=== PATIENT | male | born 1960 | race Caucasian/White ===

== ENCOUNTER 2017-01-25 09:57 | Emergency (ER) | payer OTHER ==
[~2017-01-25] VITALS: Ht 172.7 cm; Wt 96.3 kg
--- NOTE | 2017-01-25 10:07 | NUR ---
PT AMBULATED TO BED 6.
[2017-01-25 10:09] VITALS: BP 133/73
--- NOTE | 2017-01-25 10:12 | NUR ---
56M BIB FAMILY C/O RIGHT TESTICULAR PAIN/SWELLING X 3 DAYS; PT STATES NO TRAUMA OR INJURY TO SITE AT THIS TIME. HX: HTN, TUMOR IN HEAD, DENIES N/V/D; SKIN IS PINK/WARM/DRY; AAOX4 WITH EVEN AND STEADY GAIT; LUNGS CLEAR BL; HR EVEN AND REGULAR; PT DENIES ANY FEVER, CP, SOB, OR COUGH AT THIS TIME; PATIENT STATES PAIN OF 10/10 AT THIS TIME; VSS; PATIENT POSITIONED FOR COMFORT; HOB ELEVATED; BEDRAILS UP X2; BED DOWN. ER MD MADE AWARE OF PT STATUS.
[2017-01-25] MEDS ORDERED: KETOROLAC 60 MG/2 ML VIAL IM ONE (10:25)
--- NOTE | 2017-01-25 10:48 | NUR ---
ULTRASOUND AT BEDSIDE.
--- NOTE | 2017-01-25 10:49 | NUR ---
PT STS PAIN 5/10 AT THIS TIME. US AT BEDSIDE.
[2017-01-25] MEDS ORDERED: LEVE500T18 PO (10:52)
[2017-01-25] MEDS ORDERED: LOSA100T25 PO ×2 (10:52→10:54)
[2017-01-25] MEDS ORDERED: ACET-1083 PO (10:52)
[2017-01-25] MEDS ORDERED: LOSA100T1 PO (10:52)
--- NOTE | 2017-01-25 10:52 | NUR ---
PROVIDED URINE CUP FOR URINE EXAM
[2017-01-25] MEDS ORDERED: PHEN100C3 PO (10:56)
--- NOTE | 2017-01-25 11:21 | NUR ---
URINE DIP DONE, SENT URINE TO LAB
[2017-01-25 11:23] LABS: BASOPHILS # (AUTO) 0.2 K/uL (0.00-0.22); BASOPHILS % (AUTO) 1.1 % (0.0-2.0); EOSINOPHILS # (AUTO) 0.2 K/uL (0-0.4); EOSINOPHILS % (AUTO) 1.4 % (0.0-4.0); HEMATOCRIT 43.2 % (36-52); HEMOGLOBIN 14.3 g/dL (12.0-18.0); LYMPHOCYTES # (AUTO) 1.3 K/uL (2.0-11.5); LYMPHOCYTES % (AUTO) 7.7 % (20.5-51.1); MEAN CORPUSCULAR HEMOGLOBIN 29 pg (27-31); MEAN CORPUSCULAR HGB CONC 33 g/dL (33-37); MEAN CORPUSCULAR VOLUME 87 fL (80-94); MONOCYTES # (AUTO) 1.1 K/uL (0.8-1.0); MONOCYTES % (AUTO) 6.5 % (1.7-9.3); NEUTROPHILS # (AUTO) 14.3 K/uL (1.8-7.7); NEUTROPHILS % (AUTO) 83.3 % (42.2-75.2); PLATELET COUNT (AUTO) 182 K/uL (140-450); RED BLOOD CELL COUNT(AUTO) 4.97 MIL/uL (4.20-6.10); RED CELL DISTRIBUTION WIDTH 12.6 % (11.6-13.7)
[2017-01-25 11:27] LABS: APPEARANCE,URINE TURBID (CLEAR); BILIRUBIN,URINE 1+ (NEGATIVE); BLOOD, URINE 1+ (NEGATIVE); COLOR,URINE BROWN (YELLOW); LEUKOCYTE ESTERASE ,URINE NEGATIVE (NEGATIVE); NITRITE, URINE NEGATIVE (NEGATIVE); PH,URINE 5.5 (5.0-9.0); PROTEIN,URINE 2+ (NEGATIVE); UGLUCOSE TRACE (NEGATIVE); UROBILINOGEN,URINE 0.2 EU/dL (0.2 - 1)
[2017-01-25 11:39] LABS: ICTOTEST NEGATIVE (NEGATIVE)
[2017-01-25 11:40] LABS: BACTERIA,URINE OCCASSIONAL /HPF (None Seen); RBC,URINE 0-3 /HPF (0-5); SQUAMOUS EPITHELIAL CELL,UR 0-2 /LPF (0-3 (FEW)); URINE AMORPHOUS URATE 2+ /HPF (None Seen); WBC,URINE 0-4 /HPF (0-5)
[2017-01-25 11:51] LABS: WHITE BLOOD COUNT (AUTO) 17.1 K/uL (4.8-10.8)
--- NOTE | 2017-01-25 12:59 | NUR ---
FAMILY AT BEDSIDE. Addendum: 01/25/17 at 1259 by [email or web address] Patient appears to be resting comfortably in bed. Vital Signs within normal limits. Respirations even and unlabored.WILL CONTINUE TO MONITOR.
[2017-01-25] MEDS ORDERED: LEVOFLOXACIN 500 MG TAB PO ONE (13:05)
--- NOTE | 2017-01-25 13:10 | NUR ---
GAVE MED ORDER.
[2017-01-25 13:54] VITALS: BP 119/70
--- NOTE | 2017-01-25 13:54 | NUR ---
Patient discharged with v/s stable. Written and verbal after care instructions given and explained. Patient alert, oriented and verbalized understanding of instructions. Ambulatory with steady gait. All questions addressed prior to discharge. ID band removed. Patient advised to follow up with PMD. Rx of NORCO & LEVAQUIN given. Patient educated on indication of medication including possible reaction and side effects. Opportunity to ask questions provided and answered.
== END 2017-01-25 13:54 | disposition home or self-care (01) ==
LOC: MED 09:57
DX: N49.2 Inflammatory disorders of scrotum (principal); I10 Essential (primary) hypertension
CPT/HCPCS: 36415; 76870; 81001; 82948; 85025; 96372; 99285; J1885; Q0092